=== PATIENT | male | born 1945 | race Caucasian/White ===

== ENCOUNTER 2017-08-25 16:03 | Inpatient (IN) | payer OTHER, MEDICARE ==
[~2017-08-25] VITALS: Ht 182.9 cm; Wt 90.7 kg
[2017-08-25 16:00] VITALS: BP 139/78
[2017-08-25] MEDS ORDERED: FISH OIL 1,001000 M2 PO (16:26)
[2017-08-25] MEDS ORDERED: UNICOMPLEX M TA1 TA1 PO (16:27)
[2017-08-25] MEDS ORDERED: VITAMINC500 PO (16:28)
[2017-08-25] MEDS ORDERED: ALEVE220 MG PO (16:28)
[2017-08-25] MEDS ORDERED: COZAAR 50 MG TA50 M2 PO (16:29)
[2017-08-25] MEDS ORDERED: HYDROCHLOROTH12.5 M1 PO (16:29)
[2017-08-25] MEDS ORDERED: ATENOLOL 50MG T50 M1 PO (16:30)
[2017-08-25 17:09] LABS: HEMATOCRIT 39.4 % (42.0-52.0); HEMOGLOBIN 13.4 gm/dL (14.0-18.0); MCH 32.4 pg (26.0-34.0); MCV 95.4 fL (80.0-100.0); RBC 4.13 mil/uL (4.50-6.00); RDW-CV 13.1 % (10.5-14.5); WBC 12.6 thou/uL (4.0-11.0)
[2017-08-25 17:17] LABS: PROTIME 10.1 Seconds (9.20-11.50)
[2017-08-25 17:20] LABS: ALBUMIN 3.2 g/dL (3.4-5.0); CREATININE 1.1 mg/dL (0.6-1.3); POTASSIUM 3.6 mmol/L (3.5-5.1); TOTAL BILIRUBIN 0.5 mg/dL (<0.1-1.0); TOTAL PROTEIN 7.3 g/dL (6.4-8.2)
--- NOTE | 2017-08-25 18:05 | NUR ---
PT ADMITTED TO ROOM 113 WITH CELLULITIS TO ELI. REFER TO ASSESSMENT. PT HAS NO C/O PAIN. LUE ELEVATED ON PILLOW. LUE RED, WARM, EDEMA, AND OCCASIONAL WEEPING. FAMILY AT BEDSIDE. IV ABTS ADMINISTERED ORDERED. PT NPO AT THIS TIME FOR POSSIBLE SURGERY TOMORROW. NO CONCERNS VOICED. CLWR. WCTM.
[2017-08-25 20:00] VITALS: BP 140/66
[2017-08-26] VITALS (7 sets, daily range): BP systolic 107–159; BP diastolic 43–71
[2017-08-26 04:29] LABS: HEMATOCRIT 36.4 % (42.0-52.0); HEMOGLOBIN 12.7 gm/dL (14.0-18.0); MCH 33.1 pg (26.0-34.0); MCHC 34.8 g/dL (28.0-37.0); MCV 95.2 fL (80.0-100.0); RBC 3.82 mil/uL (4.50-6.00); RDW-CV 12.9 % (10.5-14.5); WBC 9.4 thou/uL (4.0-11.0)
[2017-08-26 05:01] LABS: ALBUMIN 2.6 g/dL (3.4-5.0); CALCIUM 8.2 mg/dL (8.5-10.1); TOTAL BILIRUBIN 0.7 mg/dL (<0.1-1.0); TOTAL PROTEIN 5.4 g/dL (6.4-8.2)
--- NOTE | 2017-08-26 06:01 | NUR ---
Alert and oriented x 4. He was a direct admit yesterday. L arm has cellulitis. It was red,warm and swollen. Dayshift had reported that his skin was very taunt and that it was weeping fluid. This shift he has had his arm elevated on a pillow with a chux pad and there hasn't been any drainage. He did go for a CT of his L arm and the radiologist called Dr Weaver with the results. Dr Weaver called at 2100 to order me to call ortho stat with the CT results. Dr Cespedes returned the call at 2110 and stated they would be taking him to surgery in the early am and to keep him NPO at midnight. Dr Burden ortho resident also called and the CT results were read to him also, he wanted to speak with the news production supervisor. The news production supervisor said they would take him around [address] Weaver did return call at 2200 to find out what the ortho doctor had said and she also added one more antibiotic. The patient has been pleasant and hasn't requested pain meds. Marker was used to trace the redness to his arm and also pictures were taken and placed in the chart. His vitals are stable.The redness has decreased throughout the night, the swelling has decreased also and the warmness has decreased. He's up independently in the room. EKG done and placed in chart. He's had nothing by mouth since midnight. He hasn't slept very well because I have been in his room very frequently.
--- NOTE | 2017-08-26 09:44 | NUR ---
PT RETURNED VIA BED FROM PACU AT 0945. PT IN BED, BED IN LOW LOCKED POSITION, FALL PRECAUTIONS IN PLACE, CALL BUTTON AND PERSONAL ITEMS IN PT REACH. PT A&O X4, HRRR PER AUSCULTATION, LCTAB, AFEBRILE, PERRLA, SKIN INTACT WITH EDEMA, REDNESS IN LEFT UE/SURGICAL SITE TO REMOVED FLUID. PT STATES PAIN 4/10 AND TOLERABLE. PT UP SBA/INDEPENDENT. RIGHT AC IV PATENT WITH FLUIDS INFUSING. ID, DR. IRVING CONSULTED. ABD SOFT, NON TENDER TO PALPATATION, BS IN ALL 4 QUADRANTS. PT PROGRESSING TOWARDS GOAL, HOURLY ROUNDING TO CONTINUE. WILL CONTINUE TO MONITOR PT STATUS.
--- NOTE | 2017-08-26 11:33 | EKG ---
[place] [address] ELECTROCARDIOGRAM REPORT Name: ONEL CASTRO Janeth Room: [address] ADM IN M.R.#: [id number] Admission: 08/25/17 Attend Phys: Ruba Weaver MD Discharge: Date of : 41 Report #: [id number] THIS REPORT FOR: //name// [facility] Test Date: 2017-08-26 Test Time: 04:53:15 Pat Name: ONEL CASTRO Department: Room: [address] Gender: M Director Of Retail Analytics: NANY : 1945 Requested By: Ruba Weaver Order Number: [id number] Lauren MD: Peña Page Measurements Intervals [place] Rate: 50 P: 0 AK: 160 QRS: 19 QRSD: 98 T: 22 QT: 440 QTc: 402 Interpretive Statements Sinus rhythm Nonspecific ST segment depression No previous ECG available for comparison Electronically Signed On 08-26-2017 11:33:07 CDT by Peña Page [email or web address] <ELECTRONICALLY SIGNED> By: Peña Page MD, [facility] 08/26/17 [id number] Peña Page MD, FACC /EPI
--- NOTE | 2017-08-26 15:07 | NUR ---
PT.RESTING IN BED. HE WAS ALERT AND ORIENTED. STATED HE LIVES ALONE. 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 HE DOES NOT USE DME. NO HX OF HH OR SNF. HE DOESN'T ANTICIPATE ANY DISCHARGE NEEDS.
--- NOTE | 2017-08-26 20:04 | NUR ---
REPORT TO PRESSER HAND FOR CONTINUED CARES. PT REMAINS STABLE AND A&O X4. UP INDEPENDENTLY. IV INFUSING, WELL TOLERATED. NO AVR TO IV ABT. PT PROGRESSING TOWARDS GOAL. HOURLY ROUNDING COMPLETED. GOOD APPETITE. PT DENIES PAIN, ONLY ACHE.
[2017-08-27 00:08] VITALS: BP 120/48
[2017-08-27 04:13] VITALS: BP 145/90
--- NOTE | 2017-08-27 05:30 | NUR ---
PATIENT ALERT AND ORIENTED. RA. BENITEZ DRESSING C/D/I. ENCOURAGED TO ELEVATE ON PILLOW. LEFT HAND EDEMA NOTED. FLUIDS INFUSING PER ORDER. UP INDEPENDENTLY. NEW IV PLACED IN RIGHT WRIST. PO PAIN MEDICATION GIVEN X 1. HOURLY ROUNDS. NURSING WILL CONTINUE TO MONITOR.
[2017-08-27 08:45] VITALS: BP 136/72
--- NOTE | 2017-08-27 09:24 | CON ---
[address] [address] CONSULTATION Name: ONEL CASTRO Room: [address] IN .R.#: [id number] Admission: 08/25/17 Attend Phys: Ruba Weaver MD Discharge: Date of : 41 Report #: [id number] THIS REPORT FOR: //name// CC: Alphonse Weaver DATE OF SERVICE: 08/26/2017 TYPE OF REPORT: Infectious disease consultation. ATTENDING PHYSICIAN: Ruba Weaver M.D. REASON FOR EVALUATION: Septic olecranon bursitis, left upper extremity. HISTORY OF PRESENT ILLNESS: Chart reviewed, the patient examined. This 71-year-old gentleman with history of hypertension and some arthritis, who developed without antecedent injury, redness, swelling and pain associated with the left elbow. This apparently woke him up and he noted it worsened over the next several hours. He did call in the Orthopedic Surgery who had previous relationship with. Of note, he had a right-sided, sounds like, olecranon septic bursitis last couple of years. He was evaluated and underwent aspiration, started on p.o. Bactrim; however, the course of 48 hours had not improved and he was into the hospital and underwent operative debridement including partial bursectomy. Cultures are pending and empirically started on metronidazole, Zosyn and vancomycin and seen postoperatively. ALLERGIES: None known. MEDICATIONS: Include hydrochlorothiazide, losartan, ascorbic acid, multivitamin, fish oil, atenolol, famotidine, vancomycin, metronidazole, Zosyn, tramadol, acetaminophen, aspirin and Meloxicam. PAST MEDICAL HISTORY: Hypertension and arthritis. SOCIAL HISTORY: Nonsmoker. No ethanol. FAMILY HISTORY: Noncontributory. REVIEW OF SYSTEMS: As above. PHYSICAL EXAMINATION: GENERAL: He is pleasant, alert and cooperative. He is not encephalopathic, appears to be generally well nourished. VITAL SIGNS: Stable. Temperature 97.8, pulse 56, respirations 16 and blood pressure of 159/66. [place] [address] CONSULTATION Name: ONEL CASTRO Room: [address]#: [id number] Admission: 08/25/17 Attend Phys: Ruba Weaver MD Discharge: Date of : 41 Report #: [id number] SKIN: Warm and dry. No rashes. HEENT: Unremarkable. NECK: Supple. LUNGS: Clear to auscultation. HEART: Regular. Borderline bradycardic. I do not appreciate any murmur. ABDOMEN: Soft. EXTREMITIES: Left upper extremity has a compressive surgical dressing in place over the mid portion of the limb, both above and below the elbow. There is some distal swelling. GENITOURINARY: Deferred. RECTAL: Deferred. LABORATORY DATA: culture is pending. Gram stain did show gram-positive rods with few wbc's. Electrolytes: Sodium 141, potassium 4, chloride 107, bicarbonate is 23, BUN and creatinine 16 and 1.0 and glucose of 119. Albumin . Total protein 5.4. Liver functions unremarkable. CBC: White count of 9.4, H and H 12.7 and 36.4 and platelets of 135. CRP of 299.7. Sed rate of 110. ASSESSMENT AND PLAN: Left septic olecranon bursitis. We will continue parenteral therapy. Await culture results. Repeat evaluation by Surgery. At this point, he is not overtly toxic and try to pare down therapy. <ELECTRONICALLY SIGNED> By: Sergio Alfaro MD 08/27/17 0924 [id number] [id number] Alfaro MD /nt
[2017-08-27 16:02] VITALS: BP 116/60
--- NOTE | 2017-08-27 16:24 | NUR ---
PATIENT REMAINS ALERT AND ORIENTED.DENIES PAIN. IVF AND IV ANTIBIOTICS INFUSING ORDERED. LEFT ARM DRESSING C/D/I. PATIENT AMBULATES AD NICKY. REPORTS HAVING A NORMAL BM 08/26/17. TOLERATINF MEALS. LEFT ARM ELEVATED. GOOD CAP REFILL. CALL LIGHT WITHIN REACH. WILL CONTINUE TO MONITOR.
[2017-08-27 17:44] LABS: MCH 32.9 pg (26.0-34.0); MCHC 34.2 g/dL (28.0-37.0); MCV 96.2 fL (80.0-100.0); MPV 8.6 fl. (7.2-11.1); RBC 3.64 mil/uL (4.50-6.00); RDW-CV 12.9 % (10.5-14.5); WBC 8.3 thou/uL (4.0-11.0)
[2017-08-27 17:49] LABS: CALCIUM 8.7 mg/dL (8.5-10.1); MAGNESIUM 1.9 mg/dL (1.8-2.4); POTASSIUM 3.8 mmol/L (3.5-5.1)
[2017-08-27 20:45] VITALS: BP 149/65
[2017-08-28 00:11] VITALS: BP 122/62
[2017-08-28 03:20] VITALS: BP 159/77
[2017-08-28 03:44] LABS: HEMATOCRIT 35.7 % (42.0-52.0); HEMOGLOBIN 12.5 gm/dL (14.0-18.0); MCH 32.9 pg (26.0-34.0); MCHC 35.1 g/dL (28.0-37.0); MCV 93.7 fL (80.0-100.0); MPV 8.4 fl. (7.2-11.1); RBC 3.8 mil/uL (4.50-6.00); RDW-CV 12.8 % (10.5-14.5); WBC 8.1 thou/uL (4.0-11.0)
[2017-08-28 03:47] LABS: CALCIUM 8.5 mg/dL (8.5-10.1); CREATININE 0.9 mg/dL (0.6-1.3); MAGNESIUM 1.9 mg/dL (1.8-2.4); POTASSIUM 4.2 mmol/L (3.5-5.1)
--- NOTE | 2017-08-28 05:39 | NUR ---
PATIENT ALERT AND ORIENTED. VITALS STABLE. RA. UP INDEPENDENTLY. FLUIDS INFUSING PER ORDER. DENIES THE NEED FOR PAIN MEDICATION. LEFT ARM DRESSING C/D/I. ELEVATED ON PILLOW, LEFT HAND EDEMA NOTED. MINNIE BENITEZ. HOURLY ROUNDS. NURSING WILL CONTINUE TO MONITOR.
[2017-08-28 07:45] VITALS: BP 136/72
--- NOTE | 2017-08-28 16:17 | NUR ---
PATIENT REMAINS ALERT AND ORIENTED. DENIES PAIN. TOLERATING MEALS. IV ANTIBIOTICS INFUSED ORDERED. AMBULATES AD NICKY. LEFT ARM DRESSING C/D/I. LEFT ARM ELEVATED ON PILLOW. CALL LIGHT WITHIN REACH. WILL CONTINUE TO MONITOR.
[2017-08-28 16:42] VITALS: BP 147/74
[2017-08-28 20:30] VITALS: BP 149/68
[2017-08-29 00:41] VITALS: BP 150/66
[2017-08-29 04:15] VITALS: BP 169/79
[2017-08-29 04:50] LABS: HEMATOCRIT 37.2 % (42.0-52.0); HEMOGLOBIN 12.8 gm/dL (14.0-18.0); MCH 32.5 pg (26.0-34.0); MCHC 34.5 g/dL (28.0-37.0); MCV 94.4 fL (80.0-100.0); MPV 8.4 fl. (7.2-11.1); RBC 3.95 mil/uL (4.50-6.00); RDW-CV 12.7 % (10.5-14.5); WBC 8.6 thou/uL (4.0-11.0)
[2017-08-29 05:01] LABS: CALCIUM 8.6 mg/dL (8.5-10.1); CREATININE 0.9 mg/dL (0.6-1.3); MAGNESIUM 1.8 mg/dL (1.8-2.4)
--- NOTE | 2017-08-29 05:26 | NUR ---
PATIENT ALERT AND ORIENTED. VITALS STABLE. PAIN CONTROLLED WITH PO MEDICATION. DENIES NAUSEA. NPO. FLUIDS INFUSING PER ORDER. UP INDEPENDENTLY. LEFT ARM DRESSING C/D/I. LEFT HAND EDEMA IMPROVING. ENCOURAED TO ELEVATE ON PILLOW. HOURLY ROUNDS. NURSING WILL CONTINUE TO MONITOR.
[2017-08-29 08:03] VITALS: BP 155/68
--- NOTE | 2017-08-29 09:04 | NUR ---
APPEARS PT.WILL NEED HOME IVAB. FAXED INFORMATION TO [facility] TO CHECK IV DRUG BENEFITS.
[2017-08-29] MEDS ORDERED: HYDROCODONE-AP1 EAC6 PO (10:53)
[2017-08-29 10:54] VITALS: BP 155/68
[2017-08-29] MEDS ORDERED: CEFAZOLIN2 GM/50 M2 IV (12:40)
[2017-08-29] MEDS ORDERED: ASPIRIN325 PO (13:37)
--- NOTE | 2017-08-29 14:03 | NUR ---
CONSULTED TO PLACE PICC FOR PT NEEDING STATION MANAGER ATB. CONSENT AND ORDER NOTED. SPOKE WITH PT ABOUT RISK AND BENIFIT. VOICED UNDERSTANDING AND AGREED. RIGHT UPPER ARM ASSESSED WITH ULTRASOUND. BASILIC VEIN IDENTIFIED AND NOTED TO BE WIDLEY PATENT. SINGLE LUMAN POWER PICC PLACED TO RIGHT UPPER BASILIC PER HOSPITAL PROTOCOL. LINE TRIMMED TO 44CM AND ADVANCED TO 42CM. LINE CLEARED WITH SHERLOCK 3CG. LINE SECURED AND RELEASED FOR IMMEDIATE USE. [facility].
[2017-08-29 16:00] VITALS: BP 130/71
--- NOTE | 2017-08-29 16:21 | NUR ---
PATIENT REMAINS ALERT AND ORIENTED. DENIES PAIN. PICC LINE PLACED TODAY IN [place]. PATIENT PLANNED TO DC WITH HOME IVABX AND HOME HEALTH BUT HOME HEALTH COULD NOT SEE PATIENT UNTIL TOMORROW. AMBULATING AD NICKY. TOLERATING MEALS. DRESSING TO LEFT ARM CLEAN/DRY/INTACT. CALL LIGHT WITHIN REACH. WILL CONTINUE TO MONITOR.
--- NOTE | 2017-08-29 17:15 | NUR ---
ADAM CALLED WITH PT.'S IVAB DRUG BENEFITS,EARLIER. DISCUSSED WITH PT. HE IS AGREEABLE. HE WOULD LIKE [facility] FOR [facility] HEALTH BUT UNDERSTANDS THEY MIGHT NOT SERVICE THE AREA WHERE HE LIVES. KAREL SPOKE WITH [facility] AND THEY DO NOT GO TO PT'S ADDRESS. [facility] DOES PER [facility]. PT.'S IVAB SCHEDULE IS 10-13-21. [facility] COULD NOT BE AT HIS HOME THIS EVENING OR IN AM FOR 06 DOSE. THIS WOULD MAKE HIM HAVE TO DO 2 IV DOSES WITHOUT A HH AGENCY PRESENT. [facility]/ADAM CAME OUT TO DO PT.TEACHING. PLAN WILL BE FOR PT.TO SPEND NIGHT IN HOSPITAL AND RECEIVE 06AM DOSE AND THEN DISCHARGE. [facility] WILL BE AT HIS HOME BY 1:00 PM TOMORROW FOR IV AB TEACHING. FAXED ALL ORDERS TO [facility]/KRISTOP[facility] AND [facility].
[2017-08-29 20:40] VITALS: BP 165/70
[2017-08-30 05:46] LABS: HEMATOCRIT 38.6 % (42.0-52.0); HEMOGLOBIN 13.3 gm/dL (14.0-18.0); MCH 32.6 pg (26.0-34.0); MCHC 34.4 g/dL (28.0-37.0); MCV 94.6 fL (80.0-100.0); MPV 7.9 fl. (7.2-11.1); RBC 4.08 mil/uL (4.50-6.00); WBC 9.7 thou/uL (4.0-11.0)
[2017-08-30 06:02] LABS: CALCIUM 8.6 mg/dL (8.5-10.1); CREATININE 0.9 mg/dL (0.6-1.3); POTASSIUM 4.4 mmol/L (3.5-5.1)
[2017-08-30 08:43] VITALS: BP 152/68
--- NOTE | 2017-08-30 09:19 | NUR ---
PER ,PT.IS UPSET OVER THE CHANGES,PHONE CALLS ETC. (WAS TO DISCHARGE YESTERDAY AND THEN HAD TO BE KEPT OVERNIGHT DUE TO INAVAILABILITY OF HH). CM UNABLE TO SEE PT. THIS AM DUE TO A MEETING. GAVE ALL INFORMATION TO SHWETHA AMEZCUA WHO WILL GIVE PT.INFORMATION. TOLD TO PT.YESTERDAY, [facility] WILL BE AT HIS HOME AT 1:00 TODAY FOR 2:00 ANTIBIOTIC. CM SPOKE WITH [facility] AND THEY WILL DELIVER MEDICATION TO PT.S HOME ABOUT 1200, PT.DID NOT WANT IT LEFT ON HIS PORCH. SISTER WILL BE HERE SHORTLY TO PICK PT.UP TO GO HOME.
--- NOTE | 2017-08-30 11:09 | NUR ---
PATIENT DISCHARGED TO HOME AT THIS TIME. PICC LINE IN PLACE RIGHT UPPER ARM- FREE OF REDNESS/DRAINAGE/EDEMA. HOME HEALTH WILL SEE PATIENT AROUND 1400 TODAY AND IV ABX WILL BE DELIVERED AROUND 1300. PATIENT VERBALIZES UNDERSTANDING OF DC INSTRUCTIONS. DISCHARGED WITH SISTER.
--- NOTE | 2017-11-10 11:54 | OP ---
[address] [address] OPERATIVE REPORT Name: ONEL CASTRO Room: [address] IN ..#: [id number] Admission: 08/25/17 Attend Phys: Ruba Weaver MD Discharge: 08/30/17 Date of : 41 Report #: [id number] THIS REPORT FOR: //name// CC: Alphonse Weaver DICTATED BY: Onel Burden DO DATE OF SERVICE: 08/26/2017 PREOPERATIVE DIAGNOSES: 1. Left septic olecranon bursitis. 2. Left forearm cellulitis. POSTOPERATIVE DIAGNOSES: 1. Left septic olecranon bursitis. 2. Left forearm cellulitis. SURGEON: Alphonse Cespedes DO. MANAGER ANALYSIS: Onel Burden DO. OPERATIONS PERFORMED: 1. Left olecranon bursa incision and debridement with irrigation to the level of periosteum. 2. Left forearm incision, debridement and irrigation to the level of fascia. ANESTHESIA: General. ESTIMATED BLOOD LOSS: 10 mL. SPECIMENS REMOVED: Culture swabs x 2. COMPLICATIONS: None. ANTIBIOTICS: He is getting empiric antibiotics consisting of vancomycin, Zosyn and Flagyl. INDICATIONS FOR PROCEDURE: The patient is a pleasant 71-year-old male, initially seen in our clinic on 08/23/2017, where an olecranon bursa was aspirated and he was started on p.o. Bactrim. This did not improve with conservative treatment and he returned to the clinic yesterday, 08/25/2017, with worsening erythema, swelling and bursitis. Admitted to the hospital for IV antibiotics as well as planned I and D of the left olecranon bursa and forearm. Risks, benefits, complications, alternatives [place] [address] OPERATIVE REPORT Name: ONEL CASTRO Room: [address]#: [id number] Admission: 08/25/17 Attend Phys: Ruba Weaver MD Discharge: 08/30/17 Date of : 41 Report #: [id number] discussed with the patient, included but not limited to risk of continued pain and swelling, need for repeat surgery, continued infection, risks of nerves and vessels, decreased range of motion and stiffness after surgery. We also discussed the risk of amputation for worsening infection as well as general risks associated with anesthesia up to and including . He voiced understanding and wished to proceed. DESCRIPTION OF PROCEDURE: The patient was seen in the preoperative holding area. Correct operative site was marked. Written and verbal consents were obtained. He was transferred to the operative suite, placed supine on the operating table and given the benefit of general anesthesia. The left upper extremity was then prepped and draped in a normal sterile fashion. Timeout was performed. All of the other attendants were in agreement with the correct operative site and procedure performed. We then made a longitudinal incision of the olecranon bursa. This was taken down to the level of the periosteum and we performed a limited bursectomy with debridement of infected tissue. We then palpated the extent of this area and it did feel like it tracked distally to the area of cellulitis. So, a longitudinal incision was made distally over the area of cellulitis and this was taken down to the level of fascia and then found to communicate with the bursa. Debridement was performed in both locations, with thorough excision of infected tissue. He was found to have good bleeding tissue and noted to be viable. We then took 2 intraoperative cultures from the olecranon bursa. At this point, we then thoroughly irrigated both areas with normal saline and then the incisions were closed after a Marcus was placed through each incision exiting dorsally with 2-0 nylon in a vertical mattress fashion. The wounds were then covered with Xeroform, 4 x 4s, Kerlix and an Maxim wrap. He was awoken from anesthesia and transferred to PACU in stable condition. Dr. Cespedes was present throughout the case and all important decision-making aspects. <ELECTRONICALLY SIGNED> By: Alphonse Cespedes DO 11/10/17 1154 [id number] [id number] Cespedes DO /nt
--- NOTE | 2017-11-10 11:54 | CON ---
[address] [address] CONSULTATION Name: ONEL CASTRO Room: [address] IN ..#: [id number] Admission: 08/25/17 Attend Phys: Ruba Weaver MD Discharge: 08/30/17 Date of : 41 Report #: [id number] THIS REPORT FOR: //name// CC: Alphonse Weaver DICTATED BY: Onel Burden DO DATE OF SERVICE: 08/25/2017 CHIEF COMPLAINT: Left elbow pain and swelling. HISTORY OF PRESENT ILLNESS: He is a pleasant 71-year-old male who presented to clinic on 08/23/2017, with left elbow swelling and pain. He was diagnosed with olecranon bursitis. This was aspirated at that time, 25 mL were expressed. He was started on Bactrim. He returned to clinic today, 08/25/2017, with increased swelling and erythema down the arm, into the hand. He denies any numbness or tingling. States that he has no painful range of motion of the left upper extremity and denies any fevers or chills. DRUG ALLERGIES: None listed. CURRENT MEDICATIONS: None reported. SOCIAL HISTORY: Marital status and living situation: Lives alone. 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 Denies tobacco or alcohol use. Denies illicit drug use. PAST MEDICAL HISTORY: None listed. PAST SURGICAL HISTORY: None listed. ORTHOPEDIC HISTORY: He has a history of right olecranon bursitis 2 years ago. FAMILY HISTORY: Father with heart disease. Mother arthritis. Siblings: None. Children: None listed. REVIEW OF SYSTEMS: A 14-point review of systems was obtained and negative except as mentioned in the HPI. PHYSICAL EXAMINATION: GENERAL: No acute distress, alert and oriented. HEENT: Head is normocephalic. Eyes: Pupils are equal and round. Extraocular motion intact. Conjunctivae clear. No lid lag. ENT: External appearance of ears and nose normal[place] [address] CONSULTATION Name: ONEL CASTRO Room: [address]#: [id number] Admission: 08/25/17 Attend Phys: Ruba Weaver MD Discharge: 08/30/17 Date of : 41 Report #: [id number] NECK: Trachea midline. RESPIRATORY: Normal respiratory effort, no retractions or use of accessory muscles. CARDIOVASCULAR: Regular pulses. Cap refill less than 3 seconds. No leg edema or varicosities. NEUROLOGIC: Cranial nerves 2-12 are grossly intact. No focal deficit. DTRs normal. Gross motor sensation intact. SKIN: Warm and dry. PSYCHIATRIC: Oriented to time, place and person. Recent and remote memory is intact. MUSCULOSKELETAL: Left upper extremity demonstrates erythema and swelling of the elbow on the ulnar aspect of the forearm into the dorsal aspect of the hand with some mild induration noted. He has slightly decreased range of motion of the elbow. This is pain free. He has a slight amount of fluctuance within the olecranon bursa as well. DIAGNOSTIC STUDIES: Clinic x-rays were taken demonstrating no fracture, dislocation or soft tissue swelling. IMPRESSION: 1. Left elbow septic olecranon bursitis. 2. Left upper extremity cellulitis. TREATMENT PLAN: At this time, after discussion with the patient, we did admit him directly from our clinic and Dr. Weaver kindly accepted . Recommend institution of IV antibiotics per Dr. Weaver's recommendation as well as an MRI of the left forearm and elbow to evaluate for presurgical planning and possible abscess associated with cellulitis and olecranon bursitis. We will have him n.p.o. after midnight and reevaluate after institution of these modalities. In the meantime, he is up ad josie and activity as tolerated, and we will reevaluate him in the morning for possible surgical intervention tomorrow. <ELECTRONICALLY SIGNED> By: Alphonse Cespedes DO 11/10/17 1154 1610 [id number] Cespedes DO /nt
== END 2017-08-30 09:40 | disposition home health service (06) | DRG 464 ==
LOC: M.ORTHSURG 16:03
PROVIDERS: Family Medicine; ADMIT Internal Medicine
PROC: 0JBH0ZZ Excision of Left Lower Arm Subcutaneous Tissue and Fascia, Open Approach (ICD-10-PCS; principal; 2017-08-26)
PROC: 0MB40ZZ Excision of Left Elbow Bursa and Ligament, Open Approach (ICD-10-PCS; principal; 2017-08-26)
PROC: 05HB33Z Insertion of Infusion Device into Right Basilic Vein, Percutaneous Approach (ICD-10-PCS; 2017-08-29)
DX: M70.22 Olecranon bursitis, left elbow (principal); L03.114 Cellulitis of left upper limb; L02.414 Cutaneous abscess of left upper limb; M00.9 Pyogenic arthritis, unspecified; I10 Essential (primary) hypertension; M19.90 Unspecified osteoarthritis, unspecified site; Z79.82 Long term (current) use of aspirin; Z79.899 Other long term (current) drug therapy; Z82.49 Family history of ischemic heart disease and other diseases of the circulatory system; Z82.61 Family history of arthritis